=== PATIENT | male | born 1970 | race Caucasian/White ===

== ENCOUNTER 2017-05-02 17:51 | Emergency (ER) | payer OTHER ==
--- NOTE | ~2017-05-02 | CR123 ---
[facility]. [facility] A Service of [facility] & [facility] [place] RADIOLOGY TEXT RESULTS PATIENT: ATTILA PACHECO LOCATION: SED : 72 UNIT #: [id number] AGE: [address]: Bret Graves MD SEX: M ORDER DR: [id number] [place] [address] [id number] E MR#: [id number] Acc #: [id number] NAME: ATTILA PACHECO. : 1970 SEX: M STUDY DATE/TIME: 05/02/2017 18:07 UNIT: SED ROOM: STUDY DESCRIPTION: CR Foot 2 Views Lt Attending Physician: Bret Graves M.D. Ordering Physician: Bret Graves M.D. Primary Care Physician: Primary Care Physician No MEDICAL IMAGING REPORT This report is preliminary unless electronic signature is present. EXAM Left foot, 2 views, 05/02/2017 HISTORY Foot laceration and pain after lawnmower injury. COMPARISON None. 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 No definite additional abnormality is seen, though overlying bandage obscures some detail. Dictated by... Mike Hi M.D. THIS IS AN ELECTRONICALLY VERIFIED REPORT Mike Hi M.D. at 05/04/2017 5:31 PM TEV/psc TD: 05/02/2017 21:20 JOB #: [id number] MEDICAL IMAGING REPORT Page 1 of 1
[~2017-05-02 17:51] MED LIST: BACTRIM DS TABL1 TA1 PO; BACTRIM DS TABL1 TA2 PO; KEFLEX PO; KEFLEX500 MG PO; NO MEDICATIONS; VICODIN 5/1 TAB 5/50 PO; VOLTAREN75 MG PO
[2017-05-02 18:10] LABS: BASOPHIL# 0.2 X10e3 (0-0.3); BASOPHIL% 2.4 % (0-2.5); EOSINOPHIL# 0.4 X10e3 (0-0.7); EOSINOPHIL% 3.8 % (0.0-7.0); HEMATOCRIT 43.6 % (38.0-50.0); HEMOGLOBIN 14.8 gm/dL (13.0-16.0); LYMPHOCYTE# 4.2 X10e3 (1.0-3.5); LYMPHOCYTE% 45.5 % (17.0-45.0); MEAN CELL VOLUME 87.9 FL (83-96); MEAN CORPUSCULAR HEMOGLOBIN 29.8 PG (28-34); MEAN CORPUSCULAR HGB CONC 33.9 g/dL (30-36); MEAN PLATELET VOLUME 7.4 FL (6.5-11.5); MONOCYTE# 0.9 X10e3 (0-1.0); MONOCYTE% 9.8 % (3.0-12.0); NEUTROPHIL# 3.6 X10e3 (1.5-7.1); NEUTROPHIL% 38.5 % (40-75); PLATELET COUNT 351 X10e3 (140-420); RED BLOOD COUNT 4.96 X10e (3.90-5.60); RED CELL DISTRIBUTION WIDTH 13.2 % (11.0-15.5); WHITE BLOOD COUNT 9.3 X10e3 (4.0-10.5)
[2017-05-02 18:11] LABS: DIFF IND NO
[2017-05-02 18:18] LABS: PROTHROMBIN TIME (PATIENT) 10.8 SECONDS (9.5-12.4)
[2017-05-02 18:26] LABS: PARTIAL THROMBOPLASTIN TIME 27.1 SECONDS (25.6-38.1)
[2017-05-02 18:28] LABS: ALBUMIN SERUM 4.7 g/dL (3.5-5.0); BILIRUBIN, DIRECT 0.1 mg/dL (0.0-0.2); BILIRUBIN,INDIRECT 0.6 mg/dL (0.0-0.9); BILIRUBIN,TOTAL 0.7 mg/dL (0.2-2.0); CREATININE SERUM 1.1 mg/dL (0.6-1.4); GLOM FILT RATE Estimated 80.7 mL/min (>60); POTASSIUM 3.5 mmol/L (3.5-5.1); PROTEIN TOTAL SERUM 8.2 g/dL (6.0-8.3)
== END 2017-05-02 20:26 | disposition hospice, home (50) ==
LOC: SED 17:51
PROVIDERS: Emergency Medicine
DX: S98.122A Partial traumatic amputation of left great toe, initial encounter (principal); S98.142A Partial traumatic amputation of one left lesser toe, initial encounter; F17.210 Nicotine dependence, cigarettes, uncomplicated; W28.XXXA Contact with powered lawn mower, initial encounter; Y92.009 Unspecified place in unspecified non-institutional (private) residence as the place of occurrence of the external cause
CPT/HCPCS: 36415; 73620; 80048; 80076; 85025; 85610; 85730; 90715; 96365; 96375; 99284; J1170; J2405